=== PATIENT | male | born 1995 | race Caucasian/White ===

== ENCOUNTER 2016-04-13 12:06 | Observation (INO) | payer OTHER ==
[~2016-04-13] VITALS: Ht 182.9 cm; Wt 101.3 kg
[2016-04-13] MEDS ORDERED: BENZONATATE100 MG PO (12:58)
[2016-04-13] MEDS ORDERED: CYCLOBENZAPRINE5 MG PO (12:58)
[2016-04-13 15:17] LABS: EOSINOPHIL (%) 1.7 % (0-5); EOSINOPHIL COUNT 0.1 K/uL (0-0.3); HEMATOCRIT 45.6 % (38.0-50.0); IMMATURE GRANULOCYTE (%) 0.2 % (0.0-0.7); IMMATURE GRANULOCYTE COUNT 0.1 K/uL; LYMPHOCYTE COUNT 1.4 K/uL (1.0-2.8); MCH 29.9 PG (29.0-34.0); MCHC 34.9 G/DL (30.0-36.0); MCV 85.9 FL (86-99); MEAN PLAT.VOLUME 10.9 uM^3 (9.0-12.4); MONOCYTE (%) 11.1 % (3-12); MONOCYTE COUNT 0.6 K/uL (0-0.8); NEUTROPHIL (%) 62.5 % (45-76); NEUTROPHIL COUNT 3.6 K/uL (1.8-6.4); PLATELET COUNT 215 K/uL (156-360); RBC DIS.WIDTH-SD 37.5 % (39-53); RED BLOOD COUNT 5.31 M/uL (4.00-5.50); WHITE BLOOD COUNT 5.8 K/uL (4.1-10.2)
[2016-04-13 15:29] LABS: CHLORIDE 104 mEq/L (99-109); POTASSIUM 4.3 mEq/L (3.7-5.4); PROTHROMBIN TIME 10.4 (9.2-11.2); PTT 29.4 (25-32); SODIUM 143 mEq/L (136-147)
[2016-04-13 15:30] LABS: GLUCOSE 67 mg/dL (70-99)
[2016-04-13 15:32] LABS: ANION GAP 11 MEQ/L (2-14)
[2016-04-13 15:34] LABS: GFR ESTIMATE (CALCULATED) > 59 mL/min/
[2016-04-13 15:35] LABS: UREA NITROGEN (BUN) 13 mg/dL (9-23)
[2016-04-13 15:39] LABS: TROP-I INTERPRETATION NEGATIVE; TROPONIN-I < 0.01 ng/mL (0.0-0.30)
[2016-04-13] MEDS ORDERED: TORADOL10 MG PO (16:52)
[2016-04-13] MEDS ORDERED: CYCLOBENZAPRINE10 MG PO (16:52)
[2016-04-13] MEDS ORDERED: ADVIL,NUPRIN,M200 MG PO (16:53)
[2016-04-13 17:24] VITALS: BP 96/61
[2016-04-13 19:56] VITALS: BP 131/79
[2016-04-13 23:00] VITALS: BP 125/90
[2016-04-14 01:00] LABS: TROP-I INTERPRETATION NEGATIVE; TROPONIN-I < 0.01 ng/mL (0.0-0.30)
[2016-04-14 04:49] LABS: AMPHETAMINES QUANT VALUE 0 NG/ML; BARBITUATES QUANT VALUE 0 NG/ML; BENZODIAZEPINES QUANT VALUE 0 NG/ML; BENZODIAZEPINES, URINE SCREEN Negative (200 ng/mL); MARIJUANA QUANT VALUE 0 NG/ML; OPIATES QUANTITATIVE VALUE 0 NG/ML; PHENCYCLIDINE QUANT VALUE 0 NG/ML
[2016-04-14 05:25] VITALS: BP 110/70
[2016-04-14 05:57] LABS: HEMATOCRIT 44.2 % (38.0-50.0); MCH 30.8 PG (29.0-34.0); MCHC 35.5 G/DL (30.0-36.0); MCV 86.8 FL (86-99); RBC DIS.WIDTH-CV 12.1 % (11.8-14.6); RBC DIS.WIDTH-SD 38.6 % (39-53); RED BLOOD COUNT 5.09 M/uL (4.00-5.50)
[2016-04-14 06:30] LABS: TROP-I INTERPRETATION NEGATIVE; TROPONIN-I 0.01 ng/mL (0.0-0.30)
[2016-04-14 06:51] LABS: Estimated Average Glucose 100 mg/dL (70-123); HEMOGLOBIN A1c (GLYCOHEMOGLOB) 5.1 % HGB (Below 5.7)
[2016-04-14 07:48] LABS: ANION GAP 8 MEQ/L (2-14); CHLORIDE 106 MEQ/L (99-109); GFR ESTIMATE (CALCULATED) > 59 mL/min/; HDL CHOLESTEROL 50 MG/DL (Desirable>=40); LDL CHOLESTEROL 80 mg/dL (Desirable<100); NON-HDL CHOLESTEROL 86 mg/dL (Desirable<160); SAMPLE HEMOLYSIS CHECK 0; SAMPLE ICTERIC CHECK 0; SAMPLE LIPEMIA CHECK 0; SODIUM 140 MEQ/L (136-147); TOTAL CHOLESTEROL 136 mg/dL (Desirable<200); TRIGLYCERIDES 32 MG/DL (Normal: <150); UREA NITROGEN (BUN) 14 mg/dL (9-23)
[2016-04-14 07:49] LABS: GLUCOSE 85 mg/dL (70-99)
[2016-04-14 08:20] VITALS: BP 96/55
[2016-04-14 08:33] LABS: MEAN PLAT.VOLUME 11.6 uM^3 (9.0-12.4)
[2016-04-14 08:35] LABS: PLATELET COUNT 146 K/uL (156-360)
[2016-04-14 11:23] VITALS: BP 110/74
[2016-04-14 15:16] VITALS: BP 133/72
[2016-04-14] MEDS ORDERED: ZITHROMAX500 MG PO (16:50)
[2016-04-14] MEDS ORDERED: ADVIL,NUPRIN,M200 MG PO (16:53)
[2016-04-16 09:52] LABS: ANTI-NUCLEAR AB SCRN/RFLX(ANA) NONREACTIVE (NONREACTIVE); SCL-70 (SCLERODERMA) ANTIBODY 76 U/mL (0-99)
[2016-04-16 20:44] LABS: Neutrophil Cytoplasmic Aby Negative (Negative)
== END 2016-04-14 17:44 | disposition home or self-care (01) ==
LOC: EME 12:06 → EDOF 16:36 → 5WEST 16:36 → EDOF 16:36 → 5WEST 17:24
PROVIDERS: Emergency Medicine; Internal Medicine
DX: J06.9 Acute upper respiratory infection, unspecified (principal); R07.1 Chest pain on breathing; R09.1 Pleurisy; I27.2 Other secondary pulmonary hypertension; Z88.2 Allergy status to sulfonamides; Z82.49 Family history of ischemic heart disease and other diseases of the circulatory system; Z83.3 Family history of diabetes mellitus
CPT/HCPCS: 71010; 71020; 80048; 80061; 83036; 83605; 83880; 84484; 85025; 85027; 85610; 85730; 86021 90; 86038; 86235; 86430; 87040; 93005; 93306; 99202; 99281; 99285; G0378; J0456; J0696; J7030; J7050